=== PATIENT | male | born 1940 | race Caucasian/White ===

== ENCOUNTER 2020-07-13 00:49 | Emergency (ER) | payer OTHER ==
[~2020-07-13] VITALS: Ht 182.9 cm; Wt 116.0 kg
[2020-07-13] MEDS ORDERED: DILTIAZEM 5 MG/ML, 5ML IV ONE (01:30)
[2020-07-13] MEDS ORDERED: SODIUM CHLORIDE FLUSH 10ML SYR IVF ONE (01:30)
[2020-07-13] MEDS ORDERED: FUROSEMIDE 40 MG/4 ML IVPush ONE (01:30)
--- NOTE | 2020-07-13 01:35 | NUR ---
ASSESSMENT MADE. SEEN BY ERP. IV PLACED. BLOOD DRAWN AND SENT TO LAB. XRAY DONE.
[2020-07-13 01:36] LABS: MEAN CORPUSCULAR HGB CONC 33.2 g/dL (33.2-36.2); MEAN PLATELET VOLUME 9.6 fL (7.4-10.4); PLATELET COUNT 233 x10^3/uL (130-400); RED BLOOD COUNT 4.99 x10^6/uL (4.38-5.82); RED CELL DISTRIBUTION WIDTH 15.2 % (9.4-14.8)
[2020-07-13] MEDS ORDERED: DILTIAZEM 5 MG/ML, 5ML ONE (01:37)
[2020-07-13] MEDS ORDERED: FUROSEMIDE 40 MG/4 ML ONE (01:37)
[2020-07-13 01:42] LABS: ALANINE AMINOTRANSFERASE 33 U/L (12-78); ALBUMIN 3.8 g/dL (3.4-5.0); ANION GAP 7 mmol/L (5-15); CALCIUM 8.7 mg/dL (8.5-10.1); CHLORIDE 109 mmol/L (98-107); CREATININE 1.61 mg/dL (0.7-1.3)
[2020-07-13 01:47] LABS: ALKALINE PHOSPHATASE 78 U/L (45-117); BILIRUBIN,TOTAL 0.5 mg/dL (0.2-1.0); TOTAL PROTEIN 7.5 g/dL (6.4-8.2); TROPONIN I < 0.015 ng/mL (0.000-0.045)
[2020-07-13 02:10] LABS: MD YES
--- NOTE | 2020-07-13 02:18 | NUR ---
REPEAT EKG DONE. PATIENT URINATED 350 CC. HR IMPROVED STILL AFIB ON THE MONITOR.
[2020-07-13] MEDS ORDERED: DILTIAZEM 120 MG TABLET PO STA (02:24)
--- NOTE | 2020-07-13 02:50 | NUR ---
PATIENT URINATED TOTAL OF 800 CC.
[2020-07-13 02:59] LABS: ANISOCYTOSIS 1+; EOS#(MANUAL) 0.19 x10^3/uL (0.0-0.4); EOS% (MANUAL) 2 % (1-7); LYMPH#(MANUAL) 0.56 x10^3/uL (1-3.4); LYMPHS% (MANUAL) 6 % (22-44); MONOS#(MANUAL) 1.13 x10^3/uL (0.3-2.7); MONOS% (MANUAL) 12 % (2-9); OTHER CELLS # (MANUAL) 0.09 x10^3/uL (0-0); OTHER CELLS % (MANUAL) 1 % (0-0); REACTIVE LYMPHS # (MANUAL) 0.28 x10^3/uL (0-0); REACTIVE LYMPHS % (MANUAL) 3 % (0-0); SEG#(MANUAL) 7.14 x10^3/uL (1.8-6.8); SEGS% (MANUAL) 76 % (42-75)
[2020-07-13 03:00] LABS: <PLATELET ESTIMATE> ADEQUATE; LARGE PLATELETS 1+; OVALOCYTES 1+
--- NOTE | 2020-07-13 03:06 | NUR ---
ERP AT BEDSIDE TALKING TO PATIENT.
[2020-07-13] MEDS ORDERED: DILTIAZEM 60 MG TABLET PO STA (03:29)
[2020-07-13] MEDS ORDERED: DILTIAZEM CD 180 MG CAP.ER.24H PO STA (03:29)
[2020-07-13] MEDS ORDERED: DILTIAZEM 120 MG CAP.ER.12H PO SCH ×2 (03:30→09:00)
[2020-07-13] MEDS ORDERED: DILTIAZEM 90 MG TABLET PO ONE (03:30)
[2020-07-13 03:41] VITALS: BP 138/95
--- NOTE | 2020-07-13 04:03 | NUR ---
RE-EVALUATION DONE. PATIENT DISCHARGED WITH INSTRUCTION GIVEN TO PATIENT AND FAMILY. VERBALIZED UNDERSTANDING.
== END 2020-07-13 04:08 | disposition home or self-care (01) ==
LOC: ED 04:05
DX: I48.20 Chronic atrial fibrillation, unspecified (principal); I11.0 Hypertensive heart disease with heart failure; I50.21 Acute systolic (congestive) heart failure; R06.00 Dyspnea, unspecified; R07.89 Other chest pain; J44.9 Chronic obstructive pulmonary disease, unspecified; Z87.891 Personal history of nicotine dependence
CPT/HCPCS: 36415; 71045; 80053; 83880; 84484; 85025; 93005; 96374; 96375; 99285; J1940